=== PATIENT | female | born 1955 | race Caucasian/White ===

== ENCOUNTER 2019-05-29 08:53 | Day surgery (SDC) | payer MEDICARE, OTHER ==
[2019-05-29] MEDS ORDERED: Lactated Ringers 1,000 ML IV SCH (09:30)
[2019-05-29] MEDS ORDERED: fentaNYL 100 MCG/2 ML SDV ONE (11:00)
[2019-05-29] MEDS ORDERED: Midazolam 1 MG/ML 2 ML SDV ONE (11:00)
[2019-05-29] MEDS ORDERED: Propofol 200 MG/20 ML SDV ONE (11:00)
[2019-05-29 12:44] VITALS: BP 135/82; PULSE 57
--- NOTE | 2019-05-29 13:40 | OR ---
DATE OF PROCEDURE: 05/29/2019 PREOPERATIVE DIAGNOSIS: History of adenomatous colon polyps. POSTOPERATIVE DIAGNOSES: Diverticulosis; small polyp 20 cm from anal verge; history of adenomatous colon polyps. PROCEDURE PERFORMED: Colonoscopy to the cecum with biopsy resection of small polyp 20 cm from the anal verge. SURGEON: Rafal Forbes MD ANESTHESIA: IV anesthesia with monitored anesthesia care. INDICATION: This 64-year-old white female is referred for a colonoscopy because of a history of adenomatous colon polyps. Four years ago, she had multiple polyps removed. She had a followup colonoscopy a year later, which was clear. She is now 3 years after this to have another colonoscopy. I counseled her for the procedure, including risks and alternatives, and she gave her informed consent to proceed. DESCRIPTION OF PROCEDURE: The patient was placed in the left lateral decubitus position. IV anesthesia was administered by the Anesthesia Service. Time-out was held. A rectal exam was performed, which was unremarkable. The flexible video Olympus colonoscope was introduced through her anus, up her rectum, and out her colon all the way to the cecum. Once the cecum was reached, the scope was slowly withdrawn, examining the mucosa throughout. We saw both right and left-sided diverticula. There was no bleeding or inflammation associated with any of them. At 20 cm from anal verge, we encountered a small polyp, which was removed with a couple of bites of the biopsy forceps. The scope was brought back into the rectum, where it was retroflexed. The distal rectum appeared unremarkable except for some minor hemorrhoidal tissue. The scope was straightened and removed. She tolerated the procedure well. Rafal Forbes MD /[id number]
== END 2019-05-29 12:47 | disposition home or self-care (01) ==
LOC: JP.SDS 08:53
PROVIDERS: ATTEND Surgery
DX: Z12.11 Encounter for screening for malignant neoplasm of colon (principal); K63.5 Polyp of colon; K57.30 Diverticulosis of large intestine without perforation or abscess without bleeding; K64.9 Unspecified hemorrhoids; K21.9 Gastro-esophageal reflux disease without esophagitis; E78.5 Hyperlipidemia, unspecified; Z88.8 Allergy status to other drugs, medicaments and biological substances; Z86.010 Personal history of colon polyps
CPT/HCPCS: 45380; 88305; J2250; J2704; J3010; J7120

== ENCOUNTER 2024-08-07 19:25 | Emergency (ER) | payer MEDICARE, OTHER ==
[2024-08-07 19:34] VITALS: BP 135/73; PULSE 78
== END 2024-08-07 20:20 | disposition home or self-care (01) ==
LOC: JP.ED 19:25
DX: R55 Syncope and collapse (principal); E78.00 Pure hypercholesterolemia, unspecified; K21.9 Gastro-esophageal reflux disease without esophagitis; F17.210 Nicotine dependence, cigarettes, uncomplicated; Z86.16 Personal history of COVID-19; Z79.82 Long term (current) use of aspirin; Z79.899 Other long term (current) drug therapy; Z88.8 Allergy status to other drugs, medicaments and biological substances
CPT/HCPCS: 99285